=== PATIENT | male | born 1945 | race Caucasian/White ===

== ENCOUNTER 2017-02-09 20:36 | Emergency (ER) | payer OTHER, MEDICARE ==
[2017-02-09] MEDS ORDERED: HYDROCODONE/APAP 5/325 TAB ONE (21:07)
[2017-02-09] MEDS ORDERED: HYDROCODONE/APAP 5/325 TAB PO ONE (21:12)
--- NOTE | 2017-02-09 21:21 | EDPHY ---
HPI/HX/ROS/PE/MDM Narrative: CHIEF COMPLAINT: right wrist pain. HPI: The patient is a 71-year-old male who presents with right wrist pain that began this evening after snowboarding. He denies acute trauma but believes the pain may be from pushing his boot into its binding. The pain increased gradually as the evening went on. The pain does not radiate and is worsened with movement. The symptoms feel different than his normal arthritis. He denies other complaints. REVIEW OF SYSTEMS: Gen: No fever, no chills PMH: RA, chronic back pain, laminectomy, skin cancer. 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 PHYSICAL EXAM: General: [Patient is alert, in no acute distress.] Right arm: tenderness over distal radius. Tenderness over dorsal aspect of wrist in the middle of the carpal row. Neuro: [Oriented x3. Normal motor function. Normal sensory function.] ED Course: Right wrist x-ray ordered. Study: Right Wrist X-ray Indication: Pain Results: I viewed the images myself on the PACS system. My interpretation of the images is: no fracture. The radiologist interpretation is pending at the time of this dictation. Procedure: Splint placement. A Velcro splint was applied to the right wrist by the nurse. After application of the splint I returned and re-examined the patient. The splint was adequately immobilizing the joint and distal to the splint the patient's circulation and sensation was intact. MDM: No sign of fracture or dislocation. I suspect tendonitis or possible RA flare. - Data Points Medications Given: Discontinued Medications Hydrocodone Bitart/Acetaminophen ([place] 5/325) 1 tab PO EDNOW ONE Stop: 02/09/17 21:13 Last Admin: 02/09/17 21:13 Dose: 1 tab General Time Seen by Provider: 02/09/17 21:13 Initial Vital Signs: Initial Vital Signs Temperature (C) 36.8 C 02/09/17 20:43 Heart Rate 73 02/09/17 20:43 Respiratory Rate 16 02/09/17 20:43 Blood Pressure 119/80 02/09/17 20:43 O2 Sat (%) 92 02/09/17 20:43 O2 Delivery Mode Room Air Allergies/Adverse Reactions: No Known Allergies Allergy (Verified 08/11/14 16:22) Home Medications: Medication Instructions Recorded ACTEMRA 360 mg IV Q30D 08/11/14 Cholecalciferol (Vitamin D3) 2,000 unit PO DAILY 03/05/16 [Vitamin D3] Herbals/Supplements -Info Only 1 ea PO DAILY 03/05/16 Multivitamin [Multi-Day Vitamins] 1 ea PO DAILY 03/05/16 Hydrocodone/APAP 5/325 [[place] 1 - 2 tab PO Q6H PRN #14 tab 02/09/17 5/325 (*)] Departure - Departure Disposition: Home, Routine, Self-Care Clinical Impression: Right wrist tendonitis Condition: Good Instructions: Tendinitis (ED) Additional Instructions: Take 600mg Ibuprofen every 6-8 hours as needed for pain for the next 3 days only. Wear splint for the next week as needed for pain. It is okay to remove the splint to shower. Call Dr. Pleitez, hand surgery, if symptoms are not improving after a week. Return to the emergency department if you experience any serious worsening of condition. Referrals: Valentine Nuñez MD [Primary Care Provider] - As per Instructions Roderick Pleitez MD [Medical Doctor] - As per Instructions Prescriptions: Hydrocodone/APAP 5/325 [[place] 5/325 (*)] 1 - 2 tab PO Q6H PRN #14 tab PRN Reason: Pain, Severe Report Scribed for: Eran Parson Report Scribed by: Frank Hansen Date of Report: 02/09/17 Time of Report: 21:13
[2017-02-09] MEDS ORDERED: HYDROCOD/APAP 5/325 PREPACK#6 BTL TAKEHOME ONE ×2 (21:49→21:52)
[2017-02-09 21:55] VITALS: BP 128/78; PULSE 70; RESP 14; TEMP 98.4; O2SAT 94
== END 2017-02-09 21:54 | disposition home or self-care (01) ==
DX: M77.8 Other enthesopathies, not elsewhere classified (principal)
CPT/HCPCS: 73110; 99283; L3807

== ENCOUNTER 2017-06-29 19:39 | Emergency (ER) | payer OTHER, MEDICARE ==
[2017-06-29 19:48] VITALS: TEMP 98.2
--- NOTE | 2017-06-29 19:58 | EDPHY ---
H & P Stated Complaint: 3rd toe L foot injury Time Seen by Provider: 06/29/17 19:58 - Personal History Current Tetanus/Diphtheria Vaccine: Unsure Current Tetanus Diphtheria and Acellular Pertussis (TDAP): Unsure - Medical/Surgical History Hx Asthma: No Hx Chronic Respiratory Disease: No Hx Diabetes: No Hx Cardiac Disease: No Hx Renal Disease: No Hx Cirrhosis: No Hx Alcoholism: No Hx HIV/AIDS: No Hx Splenectomy or Spleen Trauma: No Other PMH: rheumatoid arthritis, chronic back pain, laminectomy. 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, exercise induced bronchial constriction, L5-S3 fusion - Social History Smoking Status: Never smoked Constitutional: Initial Vital Signs Temperature (C) 36.8 C 06/29/17 19:44 Heart Rate 81 06/29/17 19:44 Respiratory Rate 16 06/29/17 19:44 Blood Pressure 120/83 H 06/29/17 19:44 O2 Sat (%) 93 06/29/17 19:44 O2 Delivery Mode Room Air Allergies/Adverse Reactions: No Known Allergies Allergy (Verified 06/29/17 19:42) Home Medications: Medication Instructions Recorded ACTEMRA 360 mg IV Q30D 08/11/14 Cholecalciferol (Vitamin D3) 2,000 unit PO DAILY 03/05/16 [Vitamin D3] Herbals/Supplements -Info Only 1 ea PO DAILY 03/05/16 Multivitamin [Multi-Day Vitamins] 1 ea PO DAILY 03/05/16 Krill Oil 06/29/17 Magnesium 06/29/17 Probiotic 06/29/17 Ubiquinol 06/29/17 Medical Decision Making - Diagnostics Imaging: I viewed and interpreted images myself ED Course/Re-evaluation: CHIEF COMPLAINT: 3rd toe pain HISTORY OF PRESENT ILLNESS: The patient is a 72 y/o male complaining of third toe pain and swelling secondary to dropping a vacuum on his foot today. He has mild pain, but has developed worsening swelling and bruising throughout the day causing the tip of his third toe to look black. He does not take anticoagulants. REVIEW OF SYSTEMS: A 10 point review of systems was performed and is negative with the exception of the elements mentioned in the history of present illness. PHYSICAL EXAM: HR, BP, O2 Sat, RR. Temp noted General Appearance: Alert, well hydrated, appropriate, and non-toxic appearing. Head: Atraumatic Eyes: Pupils equal, round, reactive to light and accommodation, EOMI, no trauma , no injection. Nose: Atraumatic, no rhinorrhea, clear. Throat: Mucus membranes moist. Neck: Supple Respiratory: No respiratory distress Cardiovascular: Good capillary refill all extremities. Musculoskeletal: Ecchymosis to distal tip of left third toe with mild tenderness. Otherwise normal active ROM of all extremities, atraumatic. Neurological: Alert, appropriate, and interactive. Nonfocal neuro exam. Skin: No rashes, good turgor, no nodules on palpation. Past medical history: "toenail fungus" Past surgical history: noncontributory Family history: noncontributory Social history: lives in [place] DIAGNOSTICS/PROCEDURES/CRITICAL CARE TIME: Toe x-ray: fracture of distal phalanx of left 3rd toe DIFFERENTIAL DIAGNOSIS: The differential diagnosis for the patient's pain included but was not limited to toe fracture, contusion, sprain. MEDICAL DECISION MAKING: This is a healthy 72 y/o male who presents with an ecchymotic left 3rd toe secondary to dropping a vacuum on it today. X-ray confirms fracture of distal phalanx. I discussed these findings with the patient. He will be discharged in a post-op shoe with referral to podiatry. Return precautions given. he is comfortable with this plan. Departure - Departure Disposition: Home, Routine, Self-Care Clinical Impression: Closed fracture of third toe of left foot Qualifiers: Encounter type: initial encounter Qualified Code(s): S92.502A - Displaced unspecified fracture of left lesser toe(s), initial encounter for closed fracture Condition: Good Instructions: Toe Fracture (ED) Additional Instructions: 1. Wear post op shoe for comfort. 2. Follow up with bundle tier and labeler this week. 3. Use Vicodin as prescribed if needed for severe pain. Referrals: Valentine Nuñez MD [Primary Care Provider] - As per Instructions Josue Mir DPM [Doctor of Podiatric Medicine] - As per Instructions Report Scribed for: Landen Bryan Report Scribed by: Clarissa King Date of Report: 06/29/17 Time of Report: 20:04
[2017-06-29] MEDS ORDERED: HYDROCOD/APAP 5/325 PREPACK#6 BTL TAKEHOME ONE (20:08)
[2017-06-29 20:28] VITALS: BP 116/74; PULSE 69; RESP 18; O2SAT 95
== END 2017-06-29 20:28 | disposition home or self-care (01) ==
DX: S92.532A Displaced fracture of distal phalanx of left lesser toe(s), initial encounter for closed fracture (principal); Z85.828 Personal history of other malignant neoplasm of skin; W20.8XXA Other cause of strike by thrown, projected or falling object, initial encounter; Y99.8 Other external cause status; Y93.89 Activity, other specified

== ENCOUNTER 2017-07-28 14:08 | Inpatient (IN) | payer OTHER, MEDICARE ==
--- NOTE | 2017-07-28 14:20 | EDPHY ---
H & P Stated Complaint: abnl CT today @ [facility];told he had LAD blockage and [facility] Time Seen by Provider: 07/28/17 14:19 HPI/ROS: CHIEF COMPLAINT: Abnormal CT coronary angiogram HISTORY OF PRESENT ILLNESS: The patient presents to the ED after he reportedly had an abnormal CT coronary angiogram performed at [facility]. The patient reportedly has a 70% blockage in his proximal LAD. The patient tells me he has had approximately a 1 year history of exertional chest pain. The patient was hospitalized in March of 2016 for the symptoms. He underwent a CT pulmonary angiogram which demonstrated coronary calcifications noted in the proximal LAD. The patient underwent a coronary angiogram which was reported as being completely normal. The patient followed up at [facility] for ongoing symptoms and was diagnosed with the abnormality on his CT coronary angiogram today. The patient tells me he is currently chest pain-free. The patient denies any additional acute complaints. REVIEW OF SYSTEMS: A comprehensive 10 point review of systems is otherwise negative aside from elements mentioned in the history of present illness. Source: Patient Exam Limitations: No limitations - Personal History Current Tetanus Diphtheria and Acellular Pertussis (TDAP): Unsure - Medical/Surgical History Hx Asthma: No Hx Chronic Respiratory Disease: No Hx Diabetes: No Hx Cardiac Disease: No Hx Renal Disease: No Hx Cirrhosis: No Hx Alcoholism: No Hx HIV/AIDS: No Hx Splenectomy or Spleen Trauma: No Other PMH: rheumatoid arthritis, chronic back pain, laminectomy. 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, exercise induced bronchial constriction, L5-S3 fusion - Social History Smoking Status: Never smoked - Physical Exam Exam: General Appearance: Alert, no distress Eyes: Pupils equal and round no pallor or injection ENT, Mouth: Mucous membranes moist Respiratory: There are no retractions, lungs are clear to auscultation Cardiovascular: Regular rate and rhythm Gastrointestinal: Abdomen is soft and nontender, no masses, bowel sounds normal Neurological: A&O, normal motor function, normal sensory exam, normal cranial nerves Skin: Warm and dry, no rashes Musculoskeletal: Neck is supple nontender Extremities: symmetrical, full range of motion Constitutional: Initial Vital Signs Temperature (C) 36.7 C 07/28/17 14:10 Heart Rate 72 07/28/17 14:10 Respiratory Rate 18 07/28/17 14:10 Blood Pressure 113/70 07/28/17 14:10 O2 Sat (%) 95 07/28/17 14:10 O2 Delivery Mode Room Air Allergies/Adverse Reactions: No Known Allergies Allergy (Verified 07/28/17 14:09) Home Medications: Medication Instructions Recorded ACTEMRA 360 mg IV Q30D 08/11/14 Medical Decision Making - Diagnostics EKG Interpretation: EKG: Complete interpretation has been separately recorded in the [employer] archive. Summary impression: Sinus rhythm ED Course/Re-evaluation: I reviewed the results of the patient's prior angiogram. I consulted with Cardiology to help resolve the discrepancy between his angiogram 1 year ago in the reported abnormal CT coronary angiogram today. I spoke with Dr. Ramón Vaca at 3:00 p.m.. The patient was seen by Dr. Devries from Cardiology at 4:00 p.m.. The patient will be admitted to the hospital for further evaluation of his abnormal chest CT scan and symptoms of ongoing exertional chest pain. The patient's EKG demonstrates no evidence of an acute ST segment elevation myocardial infarction. The patient's troponin is normal. Differential Diagnosis: Differential diagnosis considered includes coronary artery disease, acute coronary syndrome, unstable angina, reactive airway disease - Data Points Laboratory Results: Laboratory Results 07/28/17 14:40 07/28/17 14:40 07/28/17 07/28/17 14:40 14:40 WBC 3.03 10^3/uL L 10^3/uL (3.80-9.50) RBC 4.26 10^6/uL L 10^6/uL (4.40-6.38) Hgb 14.5 g/dL g/dL (13.7-17.5) Hct 40.6 % % (40.0-51.0) MCV 95.3 fL fL (81.5-99.8) MCH 34.0 pg pg (27.9-34.1) MCHC 35.7 g/dL g/dL (32.4-36.7) RDW 13.0 % % (11.5-15.2) Plt Count 93 10^3/uL L 10^3/uL (150-400) MPV 11.6 fL fL (8.7-11.7) Neut % (Auto) 43.5 % % (39.3-74.2) Lymph % (Auto) 39.3 % % (15.0-45.0) [place] % (Auto) 12.9 % % (4.5-13.0) Eos % (Auto) 3.3 % % (0.6-7.6) Baso % (Auto) 1.0 % % (0.3-1.7) Nucleat RBC Rel Count 0.0 % % (0.0-0.2) Absolute Neuts (auto) 1.32 10^3/uL L 10^3/uL (1.70-6.50) Absolute Lymphs (auto) 1.19 10^3/uL 10^3/uL (1.00-3.00) Absolute Monos (auto) 0.39 10^3/uL 10^3/uL (0.30-0.80) Absolute Eos (auto) 0.10 10^3/uL 10^3/uL (0.03-0.40) Absolute Basos (auto) 0.03 10^3/uL 10^3/uL (0.02-0.10) Absolute Nucleated RBC 0.00 10^3/uL 10^3/uL (0-0.01) Immature Gran % 0.0 % % (0.0-1.1) Immature Gran # 0.00 10^3/uL 10^3/uL (0.00-0.10) Sodium 138 mEq/L mEq/L (134-144) Potassium 4.2 mEq/L mEq/L (3.5-5.2) Chloride 106 mEq/L mEq/L (97-110) Carbon Dioxide 23 mEq/l mEq/l (22-31) Anion Gap 9 mEq/L mEq/L (8-16) BUN 16 mg/dL mg/dL (7-23) Creatinine 0.9 mg/dL mg/dL (0.7-1.3) Estimated GFR > 60 Glucose 106 mg/dL H mg/dL (70-100) Calcium 9.2 mg/dL mg/dL (8.5-10.4) Troponin I < 0.012 ng/mL ng/mL (0.000-0.034) Departure - Departure Disposition: Home, Routine, Self-Care Clinical Impression: Exertional chest pain Condition: Good
--- NOTE | 2017-07-28 14:34 | CPEKG ---
Heart Rate: 66 RR Interval: 909 P-R Interval: 200 QRSD Interval: 96 QT Interval: 404 QTC Interval: 424 P [place]: 42 QRS [place]: -9 T Wave [place]: 4 EKG Severity - NORMAL ECG - EKG Impression: SINUS RHYTHM Electronically Signed By: Jacobo Reeves 28-Jul-2017 16:59:04
[2017-07-28 15:06] LABS: ANION GAP 9 mEq/L (8-16); CALCIUM 9.2 mg/dL (8.5-10.4); CARBON DIOXIDE 23 mEq/l (22-31); CHLORIDE 106 mEq/L (97-110); CREATININE 0.9 mg/dL (0.7-1.3); GLOMERULAR FILTRATION RATE > 60; GLUCOSE 106 mg/dL (70-100); POTASSIUM 4.2 mEq/L (3.5-5.2); SODIUM 138 mEq/L (134-144)
[2017-07-28 15:10] LABS: ADD DIFF? NO; ADD MORPH? NO; ADD SCAN? NO; ATYPICAL LYMPHOCYTE FLAG 20 (0-99); FRAGMENT RBC FLAG 0 (0-99); HEMATOCRIT 40.6 % (40.0-51.0); HEMOGLOBIN 14.5 g/dL (13.7-17.5); LEFT SHIFT FLG 0 (0-99); LIPEMIA HEMOLYSIS FLAG 90 (0-99); MEAN CELL HEMOGLOBIN CONCENTR. 35.7 g/dL (32.4-36.7); MEAN CELL VOLUME 95.3 fL (81.5-99.8); MEAN PLATELET VOLUME 11.6 fL (8.7-11.7); PLATELET CLUMPS FLAG 0 (0-99); PLATELET COUNT 93 10^3/uL (150-400); RED BLOOD CELL COUNT 4.26 10^6/uL (4.40-6.38)
[2017-07-28 15:17] LABS: TROPONIN I < 0.012 ng/mL (0.000-0.034)
[2017-07-28] MEDS ORDERED: ONDANSETRON DISINTEGRATING 4 MG TAB PO PRN (16:53)
[2017-07-28] MEDS ORDERED: TEMAZEPAM 15 MG CAP PO PRN (16:53)
[2017-07-28] MEDS ORDERED: ACETAMINOPHEN 325 MG TAB PO PRN (16:53)
[2017-07-28] MEDS ORDERED: ONDANSETRON 4 MG/2 ML VIAL IVP PRN (16:53)
[2017-07-28] MEDS ORDERED: NITROGLYCERIN 0.4 MG BTL SL PRN (16:53)
--- NOTE | 2017-07-28 17:23 | GHP ---
[f rep st] HISTORY AND PHYSICAL DATE OF ADMISSION: 07/28/2017 CHIEF COMPLAINT: Chest discomfort, pressure and tightness with exertion. HISTORY OF PRESENT ILLNESS: The patient is a 72-year-old man with a history of chest discomfort, pr essure and tightness which is present with walking up even a 2 degree incline. He has had these sym ptoms for over a year and was worked up with angiography under the care of Dr. Dixon. Angiogram was performed in March of that year. He had significant coronary calcification but a specific obstr uctive lesion was not identified at that time. The patient was admitted in March of that same year wi th pneumonia, and has subsequently been evaluated for exertional chest heaviness and shortness of br eath down at [facility]. The patient had a fairly extensive workup at that time, and was noted to have normal lung function. Finally, a CT angiogram of his coronary arteries was performed. He was given the report today by the indigo mixer down at [facility], Dr. Gill, and was told jan t the CT angiogram revealed a proximal 80% obstruction of the LAD and recommended immediate followup and evaluation. The patient tried to get an appointment with Dr. Abhay Vaughn but would have had weight over a month for that appointment and given the fact that he has had increasing chest discom fort at lower levels of effort consistent with CCS class 3 symptoms of angina, he is requesting an u rgent evaluation in the emergency department. I was asked to see the patient by Dr. Ozzy Reeves. Th e patient denies chest discomfort at rest, and last had a meal around 12:45 this afternoon. At the time my evaluation, it was only 3 hours later. He does not have resting chest discomfort or EKG sreekanth nges. REVIEW OF SYSTEMS: A comprehensive 10-point review of systems was done and is pertinent for shortne ss of breath, arthralgia and arthritis. Shortness of breath with exertion, chest tightness and heav iness that radiates sometimes to the left arm any time that he walks up any significant grade. PAST MEDICAL HISTORY: Significant for rheumatoid arthritis. He is treated by Dr. Javier Camilo. He is otherwise healthy. FAMILY HISTORY: Pertinent for the fact that he had a great aunt with late onset coronary disease. His mother lived to age 97 and had dementia for her last 5 years. 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 He does not abuse alcohol, tobacco or other illicit drugs. MEDICATIONS: Include Actemra infusions once monthly under the care of Dr. Camilo, vitamin D and ot her herbal supplements. ALLERGIES: He is not known to be allergic to medications. PHYSICAL EXAMINATION: VITAL SIGNS: His initial vital signs reveal a blood pressure of 120/83, puls e rate is 81, respirations 16, unlabored. Oxygen saturation 93%. NECK: Reveals no JVD or carotid bruits. HEART: Reveals normal S1 and S2 without S3, S4. I do not appreciate a murmur or rub. AI GS: Clear to auscultation bilaterally without wheezes, rales or rhonchi. ABDOMEN: Benign with pos itive bowel sounds. It is nondistended and nontender. EXTREMITIES: Warm, dry, well perfused witho ut significant peripheral edema. LABORATORY STUDIES: Revealed a white count of 3.03, which has been chronically low and first measur ed to be a low value in January of this year. His platelet count has been chronically low when measur ed here, at least as far back as 04/07/2016 and usually runs in the 90s. The lowest value that I se e here at our lab was 57. His coags are normal with a PT/INR of 13.0/1.02. APTT is 27.7. His chem istries reveal a sodium 138, potassium 4.2, glucose of 106, this is a nonfasting sample. CO2 is 23, BUN and creatinine are 16 and 0.9 with a troponin I of less than 0.012 ng/mL. His EKG reveals norm al sinus rhythm with borderline first-degree AV block, with a IN interval of 200. He has nonspecifi c T-wave flattening in III, aVF, V3, V4, V5 and V6. There is an RSR prime pattern in V1 and V2 with a QRS duration of 96, most consistent with incomplete right bundle branch block. IMPRESSION/PLAN: The patient has had clinical angina for some time. I did review the images that w ere taken in March of last year. In this single view, specifically the IRISH caudal view, it did appe ar that there may be a napkin-ring type lesion as a possibility. Certainly given the fact the patie nt has had ongoing angina since that time and has another noninvasive study suggestive of flow-limit ing obstruction of the proximal left anterior descending, I think it would be prudent to admit the p atient the hospital to keep him n.p.o. after midnight tonight and then plan for cardiac catheterizat ion in the morning from a right femoral approach. The reason being is if he looks angiographically normal without evidence of flow-limiting obstruction, I think at this point, an intravascular ultras ound or FFR should be considered to rule out flow-limiting obstruction of the proximal left anterior descending as was diagnosed at [facility]. I have asked the patient that he notify the nurses promptly if he develops recurrent chest discomfort at rest. Presently, I think we will just start him on aspirin and then plan for a diagnostic catheterization with adjunctive intravascular ultrasou nd if necessary tomorrow morning. Copy requested to: Dr. Gill [facility] /[id number]/MODL
[2017-07-28] MEDS: MAGNESIUM OXIDE 400 MG TAB PO SCH (20:35)
[2017-07-29 04:32] LABS: ADD DIFF? NO; ADD MORPH? NO; ADD SCAN? NO; ATYPICAL LYMPHOCYTE FLAG 20 (0-99); FRAGMENT RBC FLAG 0 (0-99); HEMATOCRIT 39.2 % (40.0-51.0); HEMOGLOBIN 13.8 g/dL (13.7-17.5); LEFT SHIFT FLG 0 (0-99); LIPEMIA HEMOLYSIS FLAG 90 (0-99); MEAN CELL HEMOGLOBIN CONCENTR. 35.2 g/dL (32.4-36.7); MEAN CELL VOLUME 96.6 fL (81.5-99.8); MEAN PLATELET VOLUME 11.6 fL (8.7-11.7); PLATELET CLUMPS FLAG 0 (0-99); PLATELET COUNT 84 10^3/uL (150-400); RED BLOOD CELL COUNT 4.06 10^6/uL (4.40-6.38); RED CELL DISTRIBUTION WIDTH 12.9 % (11.5-15.2)
[2017-07-29 04:42] LABS: APTT 29.6 SEC (23.0-38.0); INR 1.03 (0.83-1.16); PROTIME(PATIENT) 13.4 SEC (12.0-15.0)
[2017-07-29 05:12] LABS: ANION GAP 7 mEq/L (8-16); CALCIUM 9.3 mg/dL (8.5-10.4); CARBON DIOXIDE 23 mEq/l (22-31); CHLORIDE 107 mEq/L (97-110); CHOLESTEROL 139 mg/dL (140-220); CHOLESTEROL/HDL RATIO 3.97 RATIO (1.00-4.97); GLOMERULAR FILTRATION RATE > 60; GLUCOSE 90 mg/dL (70-100); HIGH DENSITY LIPOPROTEIN 35 mg/dL (40-65); LDL/HDL RATIO 2.31 RATIO (1.00-3.64); LOW DENSITY LIPOPROTEIN 81 mg/dL (80-100); MAGNESIUM 2.2 mg/dL (1.6-2.3); NON-HIGH DENSITY LIPOPROTEIN 104 mg/dL (90-129); POTASSIUM 4.1 mEq/L (3.5-5.2); SODIUM 137 mEq/L (134-144); TRIGLYCERIDE 115 mg/dL (40-150); VERY LOW DENSITY LIPOPROTEINS 23 mg/dL (8-25)
[2017-07-29 05:22] LABS: TROPONIN I < 0.012 ng/mL (0.000-0.034)
[2017-07-29] MEDS ORDERED: DIAZEPAM 5 MG TAB PO ONE (06:00)
[2017-07-29] MEDS ORDERED: NS 1,000 ML IV ONE (06:00)
[2017-07-29] MEDS ORDERED: diphenhydrAMINE 25 MG CAP PO ONE (06:00)
[2017-07-29] MEDS ORDERED: ASPIRIN EC 325 MG TAB PO ONE (06:00)
[2017-07-29] MEDS ORDERED: FAMOTIDINE 20 MG TAB PO ONE (06:00)
[2017-07-29] MEDS: MAGNESIUM OXIDE 400 MG TAB PO SCH ×2 (08:12→20:48)
[2017-07-29] MEDS ORDERED: MIDAZOLAM 2 MG/2 ML VIAL ONE ×2 (10:31→12:09)
[2017-07-29] MEDS ORDERED: LIDOCAINE 1% 300 MG/30 ML SDV ONE (10:31)
[2017-07-29] MEDS ORDERED: fentaNYL 100 MCG/2 ML INJ ONE (10:31)
[2017-07-29] MEDS ORDERED: IOPAMIDOL (ISOVUE-370) 150 ML BTL IV ONE (10:32)
[2017-07-29] MEDS ORDERED: HEPARIN 10,000 UNIT/10 ML MDV ONE (10:32)
[2017-07-29] MEDS ORDERED: VERAPAMIL 5 MG/2 ML VIAL ONE (10:32)
--- NOTE | 2017-07-29 10:35 | PDHPUP ---
History & Physical Update H&P update statement: This history and physical update is based on an assessment of the patient which was completed after admission or registration (within 24 hours), but prior to the surgery/procedure. H&P update: H&P reviewed & patient examined, no change in patient's condition since H&P completed
--- NOTE | 2017-07-29 10:35 | PDPROPOC ---
Sedation Plan of Care Sedation Plan of Care: vital signs stable, mental status noted, patient educated of risks, benefits, alternatives, patient can tolerate sedation ASA Classification: ASA 3 Mallampati Score: Class 3
[2017-07-29] MEDS ORDERED: CLOPIDOGREL BISULFATE 75 MG TAB ONE (12:26)
--- NOTE | 2017-07-29 13:16 | CPEKG ---
Heart Rate: 53 RR Interval: 1132 P-R Interval: 228 QRSD Interval: 100 QT Interval: 464 QTC Interval: 436 P [place]: 54 QRS [place]: 23 T Wave [place]: 16 EKG Severity - ABNORMAL ECG - EKG Impression: SINUS RHYTHM EKG Impression: ATRIAL PREMATURE COMPLEX EKG Impression: FIRST DEGREE AV BLOCK Electronically Signed By: Carl Gregg 29-Jul-2017 14:55:34
[2017-07-29] MEDS ORDERED: ATROPINE SULFATE 1 MG/10 ML SYR IVP PRN (13:21)
[2017-07-29] MEDS ORDERED: CLOPIDOGREL BISULFATE 75 MG TAB PO ONE (13:21)
--- NOTE | 2017-07-29 14:23 | ASMTCMCOM ---
CM Note CM Note Notes: Per RN, pt admitted w/ chest pain. Angiogram today showed need for open heart surgery. CM d/c needs tbd. ANISHA w/f. Date Signed: 07/29/2017 12:13 PM Electronically Signed By:Lorna Zuniga
--- NOTE | 2017-07-29 16:47 | ASMTCMCOM ---
CM Note CM Note Notes: DISREGARD PRIOR NOTE Met w/ pt, anticipate independent d/c tomorrow. No CM needs identified. Pt lives w/ and semi r etired. Daughter transport home tomorrow. recently had hip surgery and will start outpatient PT in a few weeks. CM available if there are any changes. Date Signed: 07/29/2017 04:47 PM Electronically Signed By:Lorna Zuniga
--- NOTE | 2017-07-29 20:53 | CPIP ---
[f rep st] INVASIVE CARDIAC PROCEDURE DATE OF PROCEDURE: 07/29/2017 PROCEDURE PERFORMED: 1. Selective coronary angiography. 2. Left heart catheterization. 3. Left ventriculogram. 4. Intravascular ultrasound of the left anterior descending. 5. Percutaneous transluminal coronary angioplasty and stent placement of the left anterior descendi ng with the use of a 3.5 x 28 Synergy drug-eluting stent in the left anterior descending. 6. Post-dilation with a 3.5 x 20 NC Quantum. 7. Post stent dilation intravascular ultrasound. INDICATIONS/APPROPRIATE USE CRITERIA: The patient has had chronic angina, chest pressure and tightn ess with exertion up a minimal incline of 2 degrees. He has developed relatively serious and progre ssive symptoms considered unstable because of the crescendo pattern of his angina, now at CCS class 3. A repeat stress test was not performed because the patient had a CT angiogram of the coronaries performed at [facility] which suggested a proximal 80% LAD lesion. The patient was admitted ov [facility] last evening and on activity restriction has not had an elevated troponin or other issues pr ior to the procedure. PROCEDURE IN DETAIL: After informed consent was obtained, n.p.o. status was confirmed. The region of the right groin was cleaned, prepped and draped in sterile fashion. 10 cc of 1% lidocaine were u tilized for local anesthesia. A 6-Finnish sheath was placed in the right common femoral artery with single anterior puncture of the vessel. The patient then underwent the previously mentioned diagnos tic procedures with the use of JR4, JL4, and a 6-Finnish pigtail catheter. Standard other wire excha nge technique was utilized for all catheter exchanges. The left main coronary lumen is approximately 7 mm in size, trifurcates into an LAD. A high lateral branch, with most likely a ramus intermedius, circumflex obtuse marginal system. The proximal port ion of the LAD is heavily calcified. Angiographic obstruction is not identified on the basis of thi s study. The most serious obstruction appears to be in the [place] projection with a caudal angulation, which suggested a 50% stenosis. There was SHEY-3 flow throughout without angiographically identifi ed obstruction of the LAD, circumflex or ramus vessels. The right coronary artery is dominant and 4 mm in size. It has diffuse luminal irregularity consistent with underlying atherosclerosis, archana l luminal stenosis approximately 5% to 10%. There is SHEY-3 flow to the distal vessel. The patient underwent left heart catheterization demonstrating elevated left ventricular end-diastolic pressure measured at 17 mmHg. The patient underwent left ventriculogram in the JACKSON projection, demonstratin g preserved and hypercontractile left ventricular systolic function. Ejection fraction is 65%. No resting segmental wall motion abnormalities are identified. The visualized portion of the thoracic aorta is mildly enlarged without jazmin aneurysm or dissection . We turned our attention to the LAD given the findings of CTA at [facility]. The patient receive d 5000 units intravenously of heparin with a supratherapeutic ACT which was documented to be greater than 300 seconds on several measurements. A 0.014 wire was advanced into the LAD and into the dist al vessel under direct fluoroscopic and angiographic guidance, with the use of a 4.0 EBU guiding cat heter 6-Finnish in size. Intravascular ultrasound of the distal, mid and proximal LAD through the le miriam of the left main were accomplished with a standard [employer] device. We noted that the patient had a critical napkin ring stenosis just distal to the 2nd major diagonal take-off which wou ld be consistent with a location in the mid LAD. This was measured with intravascular ultrasound to be an 81% stenosis by that modality. The IVUS catheter was removed and we elected to proceed with stent implantation with the use of a 3.5 x 28 Synergy drug-eluting stent. This was deployed at a ma ximum pressure of 16 atmospheres x2, with excellent angiographic results, 0% residual stenosis of an angiographic 30% lesion just distal to the takeoff of the 2nd diagonal as I mentioned. We then performed repeat intravascular ultrasound and did not like the stent geometry, although the stent did appear to be well apposed to the vessel wall. We did alf the 2nd diagonal in treatment o f this lesion because of its location just distal to the takeoff of the 2nd diagonal. We then post dilated the vessel with a 3.5 x 20 NC Quantum balloon with excellent angiographic result, again 0% r esidual stenosis with SHEY-3 flow and no evidence of pinching of the diagonal and jailed side branch . We then proceeded with post stent implantation and noncompliant balloon angioplasty intravascular ul trasound, which demonstrated the vessel to be widely patent with excellent flow and no evidence of e dge dissection or compromise. There was 0% residual stenosis with excellent stent geometry on the b asis of intravascular ultrasound. The guiding catheter wire and IVUS catheter removed. The patient tolerated the procedure well without immediate complication, and returned to the post cath recovery unit in good and stable condition where a stat postoperative EKG will be obtained. The patient yari l remain on bedrest for 4 hours after successful Angio-Seal arteriotomy repair was completed. The patient should be treated with dual antiplatelet therapy with aspirin at 81 mg starting now, and Plavix 75 mg daily, ideally for the next year. However given the patient's low platelet count and the fact that the ACT was relatively high, the patient may be at increased risk of bleeding secondar y to a relatively low platelet count and therefore, it may be reasonable to consider abbreviating du al antiplatelet therapy or considering stopping that for any episode of bleeding. I think the likel ihood of stent thrombosis given the large size of the stent would be relatively low on aspirin or Pl avix monotherapy, which may be required if he develops issues with bleeding either, gastrointestinal or genitourinary bleeding related to dual antiplatelet therapy. Copy requested to: Dr. Gill [facility] #: [id number]
[2017-07-30 05:32] LABS: ADD DIFF? NO; ADD MORPH? NO; ADD SCAN? NO; ATYPICAL LYMPHOCYTE FLAG 10 (0-99); FRAGMENT RBC FLAG 0 (0-99); HEMATOCRIT 39.8 % (40.0-51.0); HEMOGLOBIN 13.6 g/dL (13.7-17.5); LEFT SHIFT FLG 0 (0-99); LIPEMIA HEMOLYSIS FLAG 90 (0-99); MEAN CELL HEMOGLOBIN 33.1 pg (27.9-34.1); MEAN CELL HEMOGLOBIN CONCENTR. 34.2 g/dL (32.4-36.7); MEAN CELL VOLUME 96.8 fL (81.5-99.8); PLATELET CLUMPS FLAG 0 (0-99); PLATELET COUNT 77 10^3/uL (150-400); RED BLOOD CELL COUNT 4.11 10^6/uL (4.40-6.38); RED CELL DISTRIBUTION WIDTH 12.9 % (11.5-15.2)
[2017-07-30 05:43] LABS: ALBUMIN 3.2 g/dL (3.5-5.0); ANION GAP 7 mEq/L (8-16); ASPARTATE AMINOTRANSFERASE 28 IU/L (17-59); BILIRUBIN,TOTAL 0.4 mg/dL (0.1-1.4); CALCIUM 9.2 mg/dL (8.5-10.4); CARBON DIOXIDE 25 mEq/l (22-31); CHLORIDE 105 mEq/L (97-110); GLOMERULAR FILTRATION RATE > 60; GLUCOSE 88 mg/dL (70-100); LACTATE DEHYDROGENASE 404 IU/L (313-618); MAGNESIUM 2.1 mg/dL (1.6-2.3); POTASSIUM 4.2 mEq/L (3.5-5.2); SODIUM 137 mEq/L (134-144)
[2017-07-30] MEDS: MAGNESIUM OXIDE 400 MG TAB PO SCH (08:16)
[2017-07-30] MEDS ORDERED: ASPIRIN EC 81 MG TAB PO SCH (09:00)
[2017-07-30] MEDS ORDERED: CLOPIDOGREL BISULFATE 75 MG TAB PO SCH (09:00)
--- NOTE | 2017-07-30 09:15 | CPEKG ---
Heart Rate: 61 RR Interval: 984 P-R Interval: 212 QRSD Interval: 92 QT Interval: 440 QTC Interval: 444 P [place]: 73 QRS [place]: 12 T Wave [place]: 50 EKG Severity - OTHERWISE NORMAL ECG - EKG Impression: SINUS RHYTHM EKG Impression: LOW VOLTAGE IN FRONTAL LEADS Electronically Signed By: Carl Gregg 30-Jul-2017 11:49:23
[2017-07-30 12:52] VITALS: BP 100/72; PULSE 85; RESP 12; TEMP 97.6; O2SAT 92
--- NOTE | 2017-07-30 17:52 | ASDISCHSUM ---
Discharge Information Plan Status:Home with No Needs Medically Cleared to Leave: Discharge Date:07/30/2017 03:14 PM CM D/C Disposition:Home, Routine, Self-Care ADT D/C Disposition:Home, Routine, Self-Care Projected Discharge Date:07/30/2017 03:14 PM Transportation at D/C: Discharge Delay Reason: Follow-Up Date:07/30/2017 03:14 PM Discharge Slot: Final Diagnosis: Placement Information Patient Contact Information Contact Name:JESUS Relationship: Address:[address] City:[place] Alternate Phone: [facility]/Zip Code:[place] [address] Email: Financial Information Financial Class: Primary Plan Desc:MEDICARE INPATIENT Primary Plan Number:[id number] Secondary Plan Desc:AARP/MDR SUPPLEMENT Secondary Plan Number:[id number] Assessment Information [facility] CM Progress Note CM Note CM Note Notes: Per RN, pt admitted w/ chest pain. Angiogram today showed need for open heart surgery. CM d/c needs tbd. CM w/f. Date Signed: 07/29/2017 12:13 PM Electronically Signed By:Lorna Zungia [facility] CM Progress Note CM Note CM Note Notes: DISREGARD PRIOR NOTE Met w/ pt, anticipate independent d/c tomorrow. No CM needs identified. Pt lives w/ and semi retired. Daughter transport home tomorrow. recently had hip surgery and will start outpatient PT in a few weeks. CM available if there are any changes. Date Signed: 07/29/2017 04:47 PM Electronically Signed By:Lorna Nadia Intervention Information
[2017-07-31] MEDS ORDERED: ATORVASTATIN CALCIUM 40 MG TAB PO SCH ×2 (09:00)
--- NOTE | 2017-08-02 11:22 | GDS ---
[f rep st] DISCHARGE SUMMARY ADMITTING DIAGNOSES: 1. Coronary artery disease. 2. Noted 70% lesion on CTA done at [facility] in [place] earlier today. 3. Cardiac angiogram today. DISCHARGE DIAGNOSES: 1. Coronary artery disease. 2. Left anterior descending stent placed after finding a 70% to 80% LAD lesion. COURSE OF HOSPITALIZATION: This gentleman presented to the emergency room after being seen at [facility] earlier in the day. He had a CTA done, which reported a 70% lesion to the LAD. He was advised to see a director mobile as soon as possible. He decided to drive himself directly to the emergency room, as the information was this concerning to him. He was seen by Dr. Prieto Devries in the emergency room. He was taken to the cardiac laboratory analyst for a cardiac angiogram for definitive findings. He has done well since the stent placement. He will be managed on dual anti-platelet the rapy with aspirin 81 mg and Plavix 75 mg daily over the next year. He has done well with no chest p ain, shortness of breath. He is stable for discharge. DISCHARGE MEDICATIONS: He will go home on: Vitamin D 4,000 units daily, herbal supplements daily, Tylenol 650 mg every 4 hours as needed for pain, aspirin 81 mg daily, Lipitor 40 mg daily, Plavix 75 mg daily, nitroglycerin 0.4 mg sublingual p.r.n. angina. ALLERGIES: He has no known allergies. EXAM: VITAL SIGNS: On day of discharge, blood pressure 100/72, heart rate 85 and regular, oxygen s aturation 92%, temperature 36.4 Celsius. EKG shows sinus bradycardia at rate of 54. HEART: Rate r egular. No murmurs, rubs, or gallops. LUNGS: Sounds are clear to auscultation. No wheezes, rales , or rhonchi. He is stable for discharge. DISCHARGE PLAN: He will follow up with Dr. Devries in 7-10 days. He will participate in cardiac maryam ab. Should he have any chest pain, shortness of breath, or cardiac concerns, he is to call for an a ppointment or come to the clinic sooner. At this time, he currently is stable for discharge. /[id number]/MODL
== END 2017-07-30 15:14 | disposition home or self-care (01) | DRG 247 ==
LOC: F2W 17:25 → OBSVTOIN 07-29 16:34
PROVIDERS: ADMIT Internal Medicine Cardiovascular Disease; ATTEND Internal Medicine Cardiovascular Disease
DX: I25.110 Atherosclerotic heart disease of native coronary artery with unstable angina pectoris (principal); G89.29 Other chronic pain; M06.9 Rheumatoid arthritis, unspecified; Z85.820 Personal history of malignant melanoma of skin; Z98.1 Arthrodesis status
CPT/HCPCS: C1725; C1753; C1760; C1769; C1874; C1887; C9600; G0378; J1644; J2250; J3010; Q9967

== ENCOUNTER → 2017-08-25 | Outpatient (CLI) | payer OTHER, MEDICARE | LOC: BHFA 08:30 | PROVIDERS: ATTEND Internal Medicine Cardiovascular Disease | DX: I48.91 Unspecified atrial fibrillation (principal) | CPT/HCPCS: 78452; 93017; A9500; J2785 ==

== ENCOUNTER 2017-09-18 06:24 | Observation (INO) | payer OTHER, MEDICARE ==
[2017-09-18] MEDS ORDERED: DIAZEPAM 5 MG TAB PO ONE (06:27)
[2017-09-18] MEDS ORDERED: diphenhydrAMINE 25 MG CAP PO ONE (06:27)
[2017-09-18] MEDS ORDERED: ASPIRIN EC 325 MG TAB PO ONE (06:27)
[2017-09-18] MEDS ORDERED: NS 1,000 ML IV ONE (06:27)
[2017-09-18] MEDS ORDERED: FAMOTIDINE 20 MG TAB PO ONE (06:27)
[2017-09-18] MEDS ORDERED: IOPAMIDOL (ISOVUE-370) 150 ML BTL IV ONE ×2 (06:47→07:48)
[2017-09-18] MEDS ORDERED: LIDOCAINE 1% 300 MG/30 ML SDV ONE (06:47)
--- NOTE | 2017-09-18 06:48 | CPEKG ---
Heart Rate: 53 RR Interval: 1132 P-R Interval: 216 QRSD Interval: 102 QT Interval: 460 QTC Interval: 432 P [place]: 47 QRS [place]: -16 T Wave [place]: 13 EKG Severity - OTHERWISE NORMAL ECG - EKG Impression: SINUS RHYTHM EKG Impression: BORDERLINE LEFT AXIS DEVIATION EKG Impression: FIRST DEGREE AVB Electronically Signed By: Ramón Vaca 18-Sep-2017 14:16:35
--- NOTE | 2017-09-18 06:49 | PDHPUP ---
History & Physical Update H&P update statement: This history and physical update is based on an assessment of the patient which was completed after admission or registration (within 24 hours), but prior to the surgery/procedure. H&P update: H&P reviewed & patient examined
--- NOTE | 2017-09-18 06:49 | PDPROPOC ---
Sedation Plan of Care ASA Classification: ASA 2 Planned drugs: fentanyl, midazolam Mallampati Score: Class 2 Mallampati Reference Image: Patient passed 3-3-2 rule?: Yes
[2017-09-18] MEDS ORDERED: CLOPIDOGREL BISULFATE 75 MG TAB PO ONE (06:51)
[2017-09-18] MEDS ORDERED: fentaNYL 100 MCG/2 ML INJ ONE (07:02)
[2017-09-18] MEDS ORDERED: MIDAZOLAM 2 MG/2 ML VIAL ONE (07:03)
[2017-09-18 07:04] LABS: ADD DIFF? NO; ADD MORPH? NO; ADD SCAN? NO; ATYPICAL LYMPHOCYTE FLAG 0 (0-99); FRAGMENT RBC FLAG 0 (0-99); HEMATOCRIT 44.8 % (40.0-51.0); HEMOGLOBIN 15.6 g/dL (13.7-17.5); LEFT SHIFT FLG 0 (0-99); LIPEMIA HEMOLYSIS FLAG 90 (0-99); MEAN CELL HEMOGLOBIN 33.8 pg (27.9-34.1); MEAN CELL HEMOGLOBIN CONCENTR. 34.8 g/dL (32.4-36.7); MEAN CELL VOLUME 97.2 fL (81.5-99.8); PLATELET CLUMPS FLAG 0 (0-99); PLATELET COUNT 90 10^3/uL (150-400); RED BLOOD CELL COUNT 4.61 10^6/uL (4.40-6.38); RED CELL DISTRIBUTION WIDTH 12.9 % (11.5-15.2)
[2017-09-18 07:13] LABS: INR 0.98 (0.83-1.16); PROTIME(PATIENT) 12.9 SEC (12.0-15.0)
[2017-09-18 07:39] LABS: ANION GAP 12 mEq/L (8-16); CALCIUM 9.5 mg/dL (8.5-10.4); CARBON DIOXIDE 24 mEq/l (22-31); CHLORIDE 106 mEq/L (97-110); CHOLESTEROL 112 mg/dL (140-220); CHOLESTEROL/HDL RATIO 2.15 RATIO (1.00-4.97); CREATININE 0.9 mg/dL (0.7-1.3); GLOMERULAR FILTRATION RATE > 60; GLUCOSE 89 mg/dL (70-100); HIGH DENSITY LIPOPROTEIN 52 mg/dL (40-65); LOW DENSITY LIPOPROTEIN 47 mg/dL (80-100); MAGNESIUM 2.1 mg/dL (1.6-2.3); NON-HIGH DENSITY LIPOPROTEIN 60 mg/dL (90-129); POTASSIUM 4.1 mEq/L (3.5-5.2); SODIUM 142 mEq/L (134-144); TRIGLYCERIDE 65 mg/dL (40-150); VERY LOW DENSITY LIPOPROTEINS 13 mg/dL (8-25)
[2017-09-18] MEDS ORDERED: BIVALIRUDIN 250 MG/5 ML VIAL IV ONE (07:48)
[2017-09-18] MEDS ORDERED: OXYCODONE/APAP 5/325 TAB PO PRN (08:27)
[2017-09-18] MEDS ORDERED: LORazepam 2 MG/ML INJ IVP PRN (08:27)
[2017-09-18] MEDS ORDERED: ONDANSETRON 4 MG/2 ML VIAL IVP PRN (08:27)
[2017-09-18] MEDS ORDERED: HYDROCODONE/APAP 5/325 TAB PO PRN (08:27)
[2017-09-18] MEDS ORDERED: ATROPINE SULFATE 1 MG/10 ML SYR IVP PRN (08:27)
[2017-09-18] MEDS ORDERED: TEMAZEPAM 15 MG CAP PO PRN (08:27)
[2017-09-18] MEDS ORDERED: NITROGLYCERIN 0.4 MG BTL SL PRN (08:27)
[2017-09-18] MEDS ORDERED: TOCILIZUMAB IV SCH (08:30)
--- NOTE | 2017-09-18 08:36 | CPEKG ---
Heart Rate: 53 RR Interval: 1132 P-R Interval: 224 QRSD Interval: 106 QT Interval: 472 QTC Interval: 444 P [place]: 56 QRS [place]: -21 T Wave [place]: 4 EKG Severity - ABNORMAL ECG - EKG Impression: SINUS RHYTHM EKG Impression: FIRST DEGREE AV BLOCK Electronically Signed By: Ramón Vaca 18-Sep-2017 14:16:40
[2017-09-18] MEDS: CHOLECALCIFEROL VIT D3 1,000 UNITS TAB PO SCH (12:03)
[2017-09-18] MEDS: ATORVASTATIN CALCIUM 40 MG TAB PO SCH (12:03)
[2017-09-18] MEDS: ASPIRIN EC 325 MG TAB PO SCH (12:03)
--- NOTE | 2017-09-18 12:56 | CPIP ---
[f rep st] INVASIVE CARDIAC PROCEDURE DATE OF PROCEDURE: 09/18/2017 INDICATIONS FOR PROCEDURE: Unstable angina. PROCEDURE: 1. Nonselective right coronary sheathogram. 2. Bilateral coronary angiography. 3. Left heart catheterization. 4. Left ventriculogram. 5. Percutaneous coronary intervention of proximal left anterior descending utilizing Synergy 3.5 x 2 0 mm stent. 6. Right groin closure with 6-Trinidadian Angio-Seal. HISTORY: Briefly, this is a 72-year-old male who underwent PCI of his proximal LAD approximately 3 m onths ago. The patient has been having unstable anginal-like symptoms, especially with exertion, ove r the last few months. He did have an outpatient stress test which did not show an ischemia; however , the patient performed at a low exercise level and did not have any inducible angina during the test . He indicates every day when he walks up a slight hill, he will develop substernal chest discomfort which is relieved with rest and nitroglycerin. Given these findings, the patient presents for invas live angiography. DESCRIPTION OF PROCEDURE: After informed consent, the patient was brought to [facility] where right groin was prepped and draped in sterile fashion using lidocaine. A short 6-Trinidadian was placed in the right common femoral artery, verified angiographically. Over this 6-Trinidadian sheath, a J L4 catheter was advanced to the left coronary artery. Image of the left coronary artery revealed nor mal left main. There was a circumflex artery coming off proximally which was healthy and free of dis ease. There was a ramus intermedius coming off just after the take-off of the circ which was healthy and free of disease. There was an LAD which was a long vessel, wrapped around the apex. Of note, t he ostial LAD appeared to be healthy, however, right after this take-off, there appeared to be a tubu lar area of 70% to smooth narrowing going into a stented region which was widely patent. Just distal to the stent, the vessel was tapered down in size but was widely patent and healthy. Of note, there was also sluggish flow throughout the stented area with slow flow through this area. There were sma ll diagonals coming off the LAD which were healthy and free of disease as well. After image was obta ined, the JL4 catheter was removed. A JR4 catheter was then advanced to the right coronary artery. Image of the right coronary artery revealed normal ostial RCA, mild plaque disease in the proximal RC A. The RPD and RPLS appeared to be widely patent and free of disease. The JR4 catheter was removed over the 0.035 wire. A pigtail catheter was advanced to the left ventricle. EDP was approximately 1 5 mmHg. Left ventriculogram in the JACKSON position showed an EF of 65% with no wall motion abnormalitie s. There was no pull-back gradient between the LV and aorta. This catheter was removed over the 0.0 35 wire. INTERVENTIONAL REPORT: At this time, the patient had been preloaded with 600 of Plavix p.o. and star miranda on an Angiomax bolus and drip. Utilizing an XB 3.5 guide, the left coronary was subsequently eng aged. A Choice PT wire was placed down the LAD. Our target lesion was the proximal LAD which had th e tubular stenosis going into the stented region. We decided to proceed with primary stenting of the vessel with 3.5 x 20 mm Synergy stent. This deployed successfully at 14 atmospheres. Post deployme nt, angiography was obtained which showed excellent patency of the stented regions with no evidence o f sluggish flow through the arterial circulation. Of note, the distal LAD actually increased in its width with this increased flow. This was verified in orthogonal views. At this time, the wire was r emoved, the guide catheter was removed over the 0.035 wire. The right groin was closed with a 6-Fren ch Angio-Seal. The patient tolerated the procedure well with no complications. IMPRESSION: Successful percutaneous coronary intervention of a high grade tubular proximal left ante rior descending stenosis prior to a previously placed stent which was widely patent. PLAN: The patient will be admitted overnight. If clinically stable, will anticipate discharge withi n 24 hours. Will remain on aspirin and Plavix indefinitely. /[id number]/MODL
--- NOTE | 2017-09-18 15:12 | ASMTCMCOM ---
CM Note CM Note Notes: Reviewed chart and d/w RN. Anticipate pt will dc home independantly when medically ready. Date Signed: 09/18/2017 03:11 PM Electronically Signed By:Ira Rasmussen RN
[2017-09-19 05:21] LABS: % IMMATURE GRANULYOCYTES 0.2 % (0.0-1.1); ABSOLUTE IMMATURE GRANULOCYTES 0.01 10^3/uL (0.00-0.10); ADD DIFF? NO; ADD MORPH? NO; ADD SCAN? NO; ATYPICAL LYMPHOCYTE FLAG 10 (0-99); FRAGMENT RBC FLAG 0 (0-99); HEMATOCRIT 39.5 % (40.0-51.0); HEMOGLOBIN 13.9 g/dL (13.7-17.5); LEFT SHIFT FLG 0 (0-99); LIPEMIA HEMOLYSIS FLAG 90 (0-99); MEAN CELL HEMOGLOBIN 33.8 pg (27.9-34.1); MEAN CELL HEMOGLOBIN CONCENTR. 35.2 g/dL (32.4-36.7); MEAN CELL VOLUME 96.1 fL (81.5-99.8); MEAN PLATELET VOLUME 11.2 fL (8.7-11.7); PLATELET CLUMPS FLAG 0 (0-99); PLATELET COUNT 81 10^3/uL (150-400); RED BLOOD CELL COUNT 4.11 10^6/uL (4.40-6.38); RED CELL DISTRIBUTION WIDTH 12.8 % (11.5-15.2)
[2017-09-19 05:41] LABS: ANION GAP 10 mEq/L (8-16); CALCIUM 9.1 mg/dL (8.5-10.4); CARBON DIOXIDE 22 mEq/l (22-31); CHLORIDE 108 mEq/L (97-110); CREATININE 0.9 mg/dL (0.7-1.3); GLOMERULAR FILTRATION RATE > 60; GLUCOSE 89 mg/dL (70-100); POTASSIUM 4.4 mEq/L (3.5-5.2); SODIUM 140 mEq/L (134-144)
[2017-09-19 07:59] VITALS: BP 108/64; PULSE 61; RESP 14; TEMP 97.3; O2SAT 94
[2017-09-19] MEDS ORDERED: CLOPIDOGREL BISULFATE 75 MG TAB PO SCH (09:00)
[2017-09-19] MEDS: ATORVASTATIN CALCIUM 40 MG TAB PO SCH (09:28)
[2017-09-19] MEDS: CHOLECALCIFEROL VIT D3 1,000 UNITS TAB PO SCH (09:28)
[2017-09-19] MEDS: ASPIRIN EC 325 MG TAB PO SCH (09:28)
--- NOTE | 2017-09-19 13:57 | ASDISCHSUM ---
Discharge Information Plan Status:Home with No Needs Medically Cleared to Leave: Discharge Date:09/19/2017 12:45 PM CM D/C Disposition:Home, Routine, Self-Care ADT D/C Disposition:Home, Routine, Self-Care Projected Discharge Date:09/19/2017 12:45 PM Transportation at D/C: Discharge Delay Reason: Follow-Up Date:09/19/2017 12:45 PM Discharge Slot: Final Diagnosis: Placement Information Patient Contact Information Contact Name:JESUS Relationship: Address:[address] City:[place] Alternate Phone: [facility]/Zip Code:[place] [address] Email: Financial Information Financial Class: Primary Plan Desc:MEDICARE OUTPATIENT Primary Plan Number:[id number] Secondary Plan Desc:AARP/MDR SUPPLEMENT Secondary Plan Number:[id number] Assessment Information [facility] CM Progress Note CM Note CM Note Notes: Reviewed chart and d/w RN. Anticipate pt will dc home independantly when medically ready. Date Signed: 09/18/2017 03:11 PM Electronically Signed By:Ira Rasmussen RN Intervention Information Intervention Type:*ZHANG-Signed Date of Service:09/18/2017 03:14 PM Patient Type:Observation Staff Member:Juanita Bernard Hours: Discipline: Severity: Comment:
--- NOTE | 2017-09-19 14:52 | GDS ---
[f rep st] DISCHARGE SUMMARY ADMISSION DIAGNOSES: 1. Coronary artery disease. 2. Exertional angina. 3. Abnormal stress test. 4. Hyperlipidemia. DISCHARGE DIAGNOSES: 1. Coronary artery disease. 2. Status post percutaneous coronary intervention of the left anterior descending artery with JESSICA im plantation of a 3.5 x 20 Synergy JESSICA. 3. Hyperlipidemia. PROCEDURES DONE DURING HOSPITALIZATION: 1. Electrocardiogram. 2. Diagnostic cardiac catheterization. 3. Percutaneous coronary intervention of the left anterior descending with a 3.5 x 20 Synergy JESSICA im plantation. BRIEF HISTORY: Please see history and physical. Briefly, the patient is a 72-year-old male with pre vious history of PCI of the LAD approximately 3 months ago. He has been reporting angina like sympto ms especially with exertion. He has recently had an outpatient stress test, which was noted to have a poor performance at low exercise. He has recently seen Dr. Wagner at [facility], who felt appr opriate for him to proceed with coronary angiogram. HOSPITAL COURSE: The patient admitted to [facility], prepped for procedure and taken to the cardiac cathete rization by Dr. Wagner, performed diagnostic heart catheterization with the following findings: 1. Normal left main, circumflex artery appeared healthy free of disease, ramus artery free of diseas e, LAD with a long vessel, there appears to be a tubular 70% smooth narrowing ongoing proximal to the previous stent, which is widely patent, just distal to the stent, and the vessel was tapered down in size and widely patent, noted to have sluggish flow down the LAD. 2. RCA patent, disease free. 3. LV gram showed EF of 65% with no wall motion abnormality. EDP was 15 mmHg. At the time of intervention, it was decided to intervene on the proximal LAD lesion, which Dr. Damon r successfully implanted a 3.5 x 20 Synergy stent with no complication. The patient was taken back t o the CVC, and then transferred to the PCU for overnight observation. The patient reports no further episodes of chest pain or shortness of breath. He has been up and walking the unit without any symp toms suggesting of ischemia. Continuous cardiac monitoring shows him to be sinus rhythm with no arrh ythmias or pauses noted. PHYSICAL EXAMINATION: GENERAL: Today, the patient is alert and oriented to person, place, time, sit uation. Appears to be in no acute distress. VITAL SIGNS: Blood pressure is 108/64, heart rate 61 s inus rhythm on the monitor, respirations are 14, saturating 94% with temperature 36.3 degrees Celsius . HEENT: Head is normocephalic. Lips and tongue are pink and moist with no signs of cyanosis. Con junctivae pink. NECK: Trachea is midline, +2 carotid pulses bilateral. No auscultated bruits. No jugular vein distention. RESPIRATORY: Lungs clear to auscultation. No rhonchi, rales or wheezes. No accessory muscle use. No intercostal muscle retraction noted. CARDIAC: Regular rate, regular rh ythm, S1, S2. No S3, S4, gallops, rubs, or murmurs noted. ABDOMEN: Soft, nontender, bowel sounds x 4 quadrants, no organomegaly, no palpable masses. SKIN: [place], warm, dry, no cyanosis, no clubbing, no peripheral edema. VASCULAR: +2 radials bilateral, +2 carotids bilateral, +2 dorsal pedal pulses and tibial pulses bilateral. CATHETER INSERTION SITE: Right groin site, with no redness, swelling, drainage, ecchymosis, or hematoma. No auscultated bruit over site. STUDIES: Laboratory studies drawn today show WBC of 4.46, hemoglobin of 13.9, hematocrit of 39.5, pl atelet count of 81, sodium 140, potassium 4.4, chloride 108, CO2 of 22, BUN 19, creatinine 0.9, gluco se 89, calcium 9.1. Yesterday morning he had a fasting lipid panel showing total cholesterol of 112, LDL 47, HDL 52. Diagnostic heart catheterization and percutaneous coronary intervention as mentioned above. Electroc ardiogram postprocedure showing sinus rhythm with first-degree AV block, nonspecific T-wave abnormali ties in inferior leads. DISCHARGE DISPOSITION: The patient will be discharged home in stable condition. He is under activit y restrictions of not lifting more than 10 pounds for the next week, and no strenuous activity for th e next 2 weeks. He is advised that he can shower, but he is not to bathe or submerge his cardiac cat heterization axis point, right groin site in water. DISCHARGE MEDICATIONS: Please see discharge medication reconciliation sheet, note patient will smooth nue on dual anti-platelet therapy of aspirin and clopidogrel, but we will increase his aspirin to 325 mg for the next month. Resume the rest of regular home medications. DISCHARGE INSTRUCTIONS: Post percutaneous coronary intervention discharge instructions went over wit h the patient including monitoring for signs of infection, bleeding precautions, activity restriction s, medication compliancy. The patient verbalized understanding and has no questions. The patient london s been told that if any problems or concerns post discharge, he is to notify our office or return to the hospital. The patient has a followup appointment set with Dr. Wagner on September 23 at 10:30 a.m . Total time spent on discharge greater than 30 minutes. /[id number]/MODL
== END 2017-09-19 12:45 | disposition home or self-care (01) ==
LOC: FCATH 06:24 → F2W 08:44
PROVIDERS: ADMIT Internal Medicine Cardiovascular Disease; ATTEND Internal Medicine Cardiovascular Disease
DX: I25.110 Atherosclerotic heart disease of native coronary artery with unstable angina pectoris (principal); E78.5 Hyperlipidemia, unspecified; M06.9 Rheumatoid arthritis, unspecified; Z85.828 Personal history of other malignant neoplasm of skin; Z98.1 Arthrodesis status
CPT/HCPCS: 93005; 93458; C1725; C1760; C1769; C1874; C1887; C9600; J0583; J1644; J2250; J3010; Q9967

== ENCOUNTER → 2017-11-17 | Outpatient (CLI) | payer OTHER, MEDICARE | LOC: FIMAGING 14:52 | PROVIDERS: ATTEND Family Medicine | DX: M25.512 Pain in left shoulder (principal) ==

== ENCOUNTER 2017-12-28 11:18 | Emergency (ER) | payer OTHER, MEDICARE ==
[2017-12-28 11:24] VITALS: RESP 16; TEMP 98.6
--- NOTE | 2017-12-28 11:32 | CPEKG ---
Heart Rate: 62 RR Interval: 968 P-R Interval: 200 QRSD Interval: 94 QT Interval: 404 QTC Interval: 411 P [place]: 57 QRS [place]: 20 T Wave [place]: 18 EKG Severity - NORMAL ECG - EKG Impression: SINUS RHYTHM Electronically Signed By: Jacobo Reeves 28-Dec-2017 12:23:49
[2017-12-28 12:16] LABS: PLATELET COUNT 96 10^3/uL (150-400)
--- NOTE | 2017-12-28 12:23 | EDPHY ---
H & P Stated Complaint: palpitations starting last night Time Seen by Provider: 12/28/17 11:43 HPI/ROS: CHIEF COMPLAINT: Palpitations, vague chest pain HISTORY OF PRESENT ILLNESS: The patient has a history of coronary artery disease. He is status post stenting x2. He presents to the ED with complaints of vague chest pain and palpitations last night. He did take some nitroglycerin with improvement. The patient has a history of chronic exertional angina which was not improved with the placement of stent x2. He reportedly is scheduled to be evaluated by Gastroenterology in the coming weeks. The patient is currently asymptomatic. He denies any fever, cough or congestion. The patient denies any medication changes. He denies any additional acute complaints. REVIEW OF SYSTEMS: A comprehensive 10 point review of systems is otherwise negative aside from elements mentioned in the history of present illness. Source: Patient Exam Limitations: No limitations - Personal History Current Tetanus/Diphtheria Vaccine: Unsure Current Tetanus Diphtheria and Acellular Pertussis (TDAP): Unsure - Medical/Surgical History Hx Asthma: No Hx Chronic Respiratory Disease: No Hx Diabetes: No Hx Cardiac Disease: Yes Hx Renal Disease: No Hx Cirrhosis: No Hx Alcoholism: No Hx HIV/AIDS: No Hx Splenectomy or Spleen Trauma: No Other PMH: rheumatoid arthritis, chronic back pain, laminectomy. 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, L5-S3 fusion, pneumonia,. cardiac stent x 2 07/2017 - Social History Smoking Status: Never smoked - Physical Exam Exam: General Appearance: Alert, no distress Eyes: Pupils equal and round no pallor or injection ENT, Mouth: Mucous membranes moist Respiratory: There are no retractions, lungs are clear to auscultation Cardiovascular: Regular rate and rhythm Gastrointestinal: Abdomen is soft and nontender, no masses, bowel sounds normal Neurological: A&O, normal motor function, normal sensory exam, normal cranial nerves Skin: Warm and dry, no rashes Musculoskeletal: Neck is supple nontender Extremities: symmetrical, full range of motion Constitutional: Initial Vital Signs Temperature (C) 37.0 C 12/28/17 11:21 Heart Rate 72 12/28/17 11:21 Respiratory Rate 16 12/28/17 11:21 Blood Pressure 105/67 12/28/17 11:21 O2 Sat (%) 97 12/28/17 11:21 O2 Delivery Mode Room Air Allergies/Adverse Reactions: No Known Allergies Allergy (Verified 07/28/17 14:09) Home Medications: Medication Instructions Recorded Tocilizumab [ACTEMRA] 320 mg IV Q28D #0 08/11/14 Cholecalciferol Vit D3 [Vitamin D3 4,000 units PO DAILY 07/28/17 (*)] Herbals/Supplements -Info Only 1 ea PO DAILY 07/28/17 Atorvastatin Calcium [Lipitor 40 40 mg PO DAILY #30 tab 07/30/17 mg (*)] Clopidogrel Bisulfate [Plavix (*)] 75 mg PO DAILY #30 tab 07/30/17 Nitroglycerin [Nitrostat 0.4 mg 0.4 mg SL PRN PRN #1 btl 07/30/17 (*)] Naproxen Sodium [Aleve 220 MG (*)] 220 mg PO DAILY PRN 09/17/17 Aspirin EC [Aspirin EC 325 mg (*)] 325 mg PO DAILY tab 09/19/17 Medical Decision Making - Diagnostics EKG Interpretation: EKG: Complete interpretation has been separately recorded in the [facility] archive. Summary impression: Sinus rhythm, rate 62 ED Course/Re-evaluation: The patient presents to the ED for evaluation of palpitations and some atypical chest pain. The patient has a history of chronic exertional chest pain not improved with angiograms and stenting. The patient's EKG and troponin are normal. The patient was observed on a air lift operator for several hours without evidence of obvious arrhythmia. The patient did have motion artifact noted several times. I re-evaluated the patient at 2:00 p.m. and discussed with him options. 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 The patient does understand that we have not fully excluded acute coronary syndrome. He is a competent decision maker. Differential Diagnosis: Differential diagnosis considered includes acute coronary syndrome, palpitations , myocardial infarction, pancreatitis, hepatitis, cholecystitis, arrhythmia - Data Points Laboratory Results: Laboratory Results 12/28/17 11:30 12/28/17 11:30 12/28/17 12/28/17 11:30 11:30 WBC 3.14 10^3/uL L 10^3/uL (3.80-9.50) RBC 4.58 10^6/uL 10^6/uL (4.40-6.38) Hgb 15.2 g/dL g/dL (13.7-17.5) Hct 43.6 % % (40.0-51.0) MCV 95.2 fL fL (81.5-99.8) MCH 33.2 pg pg (27.9-34.1) MCHC 34.9 g/dL g/dL (32.4-36.7) RDW 13.5 % % (11.5-15.2) Plt Count 96 10^3/uL L 10^3/uL (150-400) MPV 11.7 fL fL (8.7-11.7) Neut % (Auto) 46.4 % % (39.3-74.2) Lymph % (Auto) 35.4 % % (15.0-45.0) [place] % (Auto) 12.1 % % (4.5-13.0) Eos % (Auto) 5.1 % % (0.6-7.6) Baso % (Auto) 1.0 % % (0.3-1.7) Nucleat RBC Rel Count 0.0 % % (0.0-0.2) Absolute Neuts (auto) 1.46 10^3/uL L 10^3/uL (1.70-6.50) Absolute Lymphs (auto) 1.11 10^3/uL 10^3/uL (1.00-3.00) Absolute Monos (auto) 0.38 10^3/uL 10^3/uL (0.30-0.80) Absolute Eos (auto) 0.16 10^3/uL 10^3/uL (0.03-0.40) Absolute Basos (auto) 0.03 10^3/uL 10^3/uL (0.02-0.10) Absolute Nucleated RBC 0.00 10^3/uL 10^3/uL (0-0.01) Immature Gran % 0.0 % % (0.0-1.1) Immature Gran # 0.00 10^3/uL 10^3/uL (0.00-0.10) Sodium 143 mEq/L mEq/L (135-145) Potassium 4.4 mEq/L mEq/L (3.5-5.2) Chloride 108 mEq/L mEq/L (97-110) Carbon Dioxide 24 mEq/l mEq/l (22-31) Anion Gap 11 mEq/L mEq/L (8-16) BUN 15 mg/dL mg/dL (7-23) Creatinine 0.9 mg/dL mg/dL (0.7-1.3) Estimated GFR > 60 Glucose 106 mg/dL H mg/dL (70-100) Calcium 9.6 mg/dL mg/dL (8.5-10.4) Total Bilirubin 1.1 mg/dL mg/dL (0.1-1.4) Conjugated Bilirubin 0.3 mg/dL mg/dL (0.0-0.5) Unconjugated Bilirubin 0.8 mg/dL mg/dL (0.0-1.1) AST 38 IU/L IU/L (17-59) ALT 56 IU/L IU/L (21-72) Alkaline Phosphatase 94 IU/L IU/L (38-126) Troponin I < 0.012 ng/mL ng/mL (0.000-0.034) Total Protein 6.8 g/dL g/dL (6.3-8.2) Albumin 4.2 g/dL g/dL (3.5-5.0) Lipase 76 IU/L IU/L (23-300) Departure - Departure Disposition: Home, Routine, Self-Care Clinical Impression: Palpitations Condition: Good Instructions: Heart Palpitations (ED) Additional Instructions: 1. Based upon the testing done in the Emergency Department today we see no evidence of a heart attack. 2. We are unable to fully exclude coronary artery disease based upon the testing available in the Emergency Department. 3. For this reason, we would like you to be seen by cardiology for consideration of additional testing within the next 3 days. 4. Please contact the wash mill operator you have been referred to schedule this appointment as soon as possible. Their offices are typically open from 8:30am- 5pm M-F. 5. Please return to the Emergency Department immediately for any recurrent chest pain, difficulty breathing or other concerns. Referrals: Bryan Wagner MD [Medical Doctor] - As per Instructions
[2017-12-28 14:37] VITALS: BP 112/74; PULSE 61; O2SAT 92
== END 2017-12-28 14:36 | disposition home or self-care (01) ==
DX: R00.2 Palpitations (principal); Z79.82 Long term (current) use of aspirin; Z85.828 Personal history of other malignant neoplasm of skin; Z95.5 Presence of coronary angioplasty implant and graft

== ENCOUNTER → 2018-06-12 | Outpatient (CLI) | payer OTHER, MEDICARE ==
[~2018-06-12] MED LIST: IOPAMIDOL (ISOVUE 370) 100 ML BTL IV ONE
== END ==
LOC: FIMAGING 14:57
PROVIDERS: ATTEND Family Medicine
DX: K56.49 Other impaction of intestine (principal); K57.30 Diverticulosis of large intestine without perforation or abscess without bleeding; Q44.6 Cystic disease of liver
CPT/HCPCS: 74174; Q9967; 82565-PO

== ENCOUNTER → 2019-04-02 | Outpatient (CLI) | payer OTHER, MEDICARE | LOC: FIMAGING 14:21 | PROVIDERS: ATTEND Internal Medicine Critical Care Medicine | DX: J84.9 Interstitial pulmonary disease, unspecified (principal); I25.10 Atherosclerotic heart disease of native coronary artery without angina pectoris ==